=== PATIENT | female | born 1975 | race Caucasian/White ===

== ENCOUNTER 2022-04-05 16:18 | Emergency (ER) | payer SELFPAY ==
--- NOTE | 2022-04-05 17:20 | NUR ---
called for triage, no answer
--- NOTE | 2022-04-05 17:33 | NUR ---
called for triage, no answer
--- NOTE | 2022-04-05 17:47 | NUR ---
called for triage, no answer
== END 2022-04-05 17:48 | disposition left against medical advice (07) ==
LOC: ER 16:18
DX: Z53.21 Procedure and treatment not carried out due to patient leaving prior to being seen by health care provider (principal)